=== PATIENT | male | born 1945 | race Caucasian/White ===

== ENCOUNTER 2017-12-15 09:22 | Observation (INO) ==
[2017-12-17 08:17] VITALS: BP 132/78
== END 2017-12-17 11:30 | disposition home or self-care (01) ==
LOC: N.ED 09:22 → N.EDINP 09:22 → N.TELES 12:59
PROVIDERS: ADMIT Internal Medicine Cardiovascular Disease; ATTEND Internal Medicine Cardiovascular Disease